=== PATIENT | male | born 1955 | race Asian ===

== ENCOUNTER 2017-10-31 04:30 | Emergency (ER) | payer SELFPAY ==
[~2017-10-31] VITALS: Ht 172.7 cm; Wt 95.5 kg
[~2017-10-31 04:30] MED LIST: ALLO100T PO; ASPI81 PO; ATEN50TA PO; LISI-662 PO
[2017-10-31] MEDS ORDERED: AMLO-511 PO (04:41)
[2017-10-31 05:13] LABS: BASOPHILS % (AUTO) 0.3 % (0.0-2.0); EOSINOPHILS % (AUTO) 2.3 % (1.0-6.0); HEMATOCRIT 47.6 % (41-53); HEMOGLOBIN 16.2 g/dL (13.5-17.5); LYMPHOCYTES # (AUTO) 1.4 K/uL (1.0-4.8); LYMPHOCYTES % (AUTO) 18.4 % (22.0-44.0); MEAN CORPUSCULAR HEMOGLOBIN 29.2 pg (26.0-34.0); MEAN CORPUSCULAR HGB CONC 34.1 G/dL (31.0-37.0); MEAN CORPUSCULAR VOLUME 86 fL (80-100); MONOCYTES # (AUTO) 0.5 K/uL (0.1-1.0); MONOCYTES % (AUTO) 6.6 % (2.0-9.0); NEUTROPHILS # (AUTO) 5.7 K/uL (1.8-7.7); NEUTROPHILS % (AUTO) 72.4 % (40.0-70.0); PLATELET COUNT (AUTO) 270 K/uL (150-450); RED BLOOD CELL COUNT(AUTO) 5.56 MIL/uL (4.50-5.90); RED CELL DISTRIBUTION WIDTH 13.4 % (11.5-14.5)
[2017-10-31 05:23] LABS: ANION GAP 9 mmol/L (8-16); CALCIUM, TOTAL 8.3 mg/dL (8.8-10.5); CARBON DIOXIDE 27 mmol/L (22-29); CHLORIDE 105 mmol/L (98-107); CREATININE 1.35 mg/dL (0.60-1.30); GLOMERULAR FILTR. RATE CALC 54 mL/min (>60); GLUCOSE,RANDOM 131 mg/dL (70-110); POTASSIUM 3.9 mmol/L (3.5-5.1); SODIUM SERUM 141 mmol/L (136-145); UREA NITROGEN, BLOOD 18 mg/dL (7-18)
[2017-10-31 05:28] LABS: ALANINE AMINOTRANSFERASE 69 U/L (12-78); ALBUMIN 3.5 g/dL (3.4-5.0); ALKALINE PHOSPHATASE 73 U/L (46-116); ASPARTATE AMINOTRANSFERASE 27 U/L (15-37); BILIRUBIN,TOTAL 0.3 mg/dL (0.1-1.0); TOTAL PROTEIN, SERUM 7.6 g/dL (6.4-8.2)
[2017-10-31] MEDS ORDERED: ONDANSETRON HCL 4 MG/2 ML VIAL IVP ONE (06:45)
[2017-10-31] MEDS ORDERED: MORPHINE SULFATE 4 MG/ML SYRINGE IVP ONE ×2 (06:45→07:45)
[2017-10-31] MEDS ORDERED: SODIUM CHLORIDE 0.9% 1,000 ML IV ONE (06:45)
[2017-10-31 07:27] LABS: AMYLASE 85 U/L (25-115); CREATINE KINASE MB 0.8 ng/mL (0-5); CREATINE KINASE, TOTAL 120 U/L (39-308); LIPASE 156 U/L (73-393)
[2017-10-31] MEDS ORDERED: LORazepam 2 MG/ML VIAL IVP ONE (07:45)
[2017-10-31] MEDS ORDERED: KETOROLAC TROMETHAMINE 30 MG/ML VIAL IVP ONE (08:00)
[2017-10-31 08:22] LABS: APPEARANCE,URINE CLEAR (CLEAR); BILIRUBIN,URINE NEGATIVE (NEGATIVE); GLUCOSE, URINE (UA) NEGATIVE (NEGATIVE); KETONES,URINE NEGATIVE (NEGATIVE); LEUKOCYTE ESTERASE ,URINE NEGATIVE (NEGATIVE); NITRATE,URINE NEGATIVE (NEGATIVE); OCCULT BLOOD,URINE MODERATE (NEGATIVE); PH,URINE 5.5 (5.0-8.0); PROTEIN,URINE TRACE (NEGATIVE); UROBILINOGEN,URINE 0.2 mg/dL (<=1.0)
[2017-10-31 08:30] LABS: WBC,URINE 0-2 /HPF (0-5)
[2017-10-31 08:31] LABS: BACTERIA,URINE Rare /HPF (None Seen)
[2017-10-31 08:35] LABS: SQUAMOUS EPITHELIAL CELL,UR None Seen /LPF (None Seen)
[2017-10-31 09:26] VITALS: BP 140/90
== END 2017-10-31 09:53 | disposition home or self-care (01) ==
LOC: EMS 04:31
DX: N20.0 Calculus of kidney (principal); I10 Essential (primary) hypertension
CPT/HCPCS: 36415; 71045; 74177; 80053; 81001; 82150; 82550; 82553; 83690; 84484; 85025; 96361; 96374; 96375; 96376; 99285; J1885; J2060; J2270; J2405; J7030

== ENCOUNTER 2021-03-22 09:02 | Inpatient (IN) | payer MEDICAID, OTHER ==
[~2021-03-22] VITALS: Ht 170.2 cm; Wt 120.1 kg
[~2021-03-22 09:02] MED LIST changes: -ALLO100T PO; +ALLO100T2 PO; +AMLO-257 PO; +ASPI-1450 PO; -ASPI81 PO; +ATEN-72 PO; -ATEN50TA PO; -LISI-662 PO; +LISI-894 PO
[2021-03-22] MEDS ORDERED: ACETAMINOPHEN 325 MG TABLET PO ONE (09:45)
[2021-03-22 10:09] LABS: COVID AG,FIA SOURCE NASOPHARYNGEAL
[2021-03-22 10:16] LABS: BASOPHILS % (AUTO) 0.3 % (0.0-2.0); EOSINOPHILS % (AUTO) 3.2 % (1.0-6.0); HEMATOCRIT 45.2 % (41-53); LYMPHOCYTES # (AUTO) 0.9 K/uL (1.0-4.8); LYMPHOCYTES % (AUTO) 15.4 % (22.0-44.0); MEAN CORPUSCULAR HEMOGLOBIN 28.7 pg (26.0-34.0); MEAN CORPUSCULAR HGB CONC 33.1 G/dL (31.0-37.0); MEAN CORPUSCULAR VOLUME 87 fL (80-100); MONOCYTES # (AUTO) 0.6 K/uL (0.1-1.0); MONOCYTES % (AUTO) 10.6 % (2.0-9.0); NEUTROPHILS # (AUTO) 3.9 K/uL (1.8-7.7); NEUTROPHILS % (AUTO) 70.5 % (40.0-70.0); PLATELET COUNT (AUTO) 239 K/uL (150-450); RED CELL DISTRIBUTION WIDTH 14.2 % (11.5-14.5)
[2021-03-22 10:41] LABS: INFLUENZA TYPE A NEGATIVE FOR TYPE A (NEGATIVE); INFLUENZA TYPE B POSITIVE FOR TYPE B (NEGATIVE)
[2021-03-22 10:50] LABS: ALANINE AMINOTRANSFERASE 56 U/L (12-78); ALBUMIN 3.3 g/dL (3.4-5.0); ALKALINE PHOSPHATASE 62 U/L (46-116); ANION GAP 10 mmol/L (8-16); ASPARTATE AMINOTRANSFERASE 25 U/L (15-37); BILIRUBIN,TOTAL 0.5 mg/dL (0.1-1.0); CALCIUM, TOTAL 8.6 mg/dL (8.8-10.5); CARBON DIOXIDE 25 mmol/L (22-29); CHLORIDE 106 mmol/L (98-107); CREATININE 0.93 mg/dL (0.60-1.30); GLOMERULAR FILTR. RATE CALC > 60 mL/min (>60); GLUCOSE,RANDOM 113 mg/dL (70-110); POTASSIUM 3.9 mmol/L (3.5-5.1); SODIUM SERUM 141 mmol/L (136-145); TOTAL PROTEIN, SERUM 7.5 g/dL (6.4-8.2); UREA NITROGEN, BLOOD 12 mg/dL (7-18)
[2021-03-22 11:13] LABS: C-REACTIVE PROTEIN QUANT 1.68 mg/dL (0.00-0.30); FERRITIN 167 ng/mL (26-388); LACTATE DEHYDROGENASE 187 U/L (85-227)
[2021-03-22] MEDS ORDERED: OSELTAMIVIR PHOSPHATE 75 MG CAPSULE PO ONE (11:45)
[2021-03-22] MEDS ORDERED: ATENOLOL 50 MG TABLET PO ONE (12:15)
[2021-03-22] MEDS ORDERED: LISINOPRIL 10 MG TABLET PO ONE (12:15)
[2021-03-22] MEDS ORDERED: ACETAMINOPHEN 325 MG TABLET PO PRN (12:30)
[2021-03-22] MEDS ORDERED: 0.9% SODIUM CHLORIDE 10 ML SYRINGE IVP PRN (12:30)
[2021-03-22] MEDS ORDERED: ONDANSETRON HCL 4 MG/2 ML VIAL IVP PRN ×2 (12:30→16:00)
[2021-03-22] MEDS ORDERED: MAG HYDROX/AL HYDROX/SIMETH 30 ML SUSP UDCUP PO ONE (15:15)
[2021-03-22] MEDS ORDERED: MAG HYDROX/AL HYDROX/SIMETH ES 30 ML SUSPENSION UDCUP PO ONE (15:15)
[2021-03-22] MEDS ORDERED: HYDROCODONE/ACETAMINOPHEN 5-325 MG TABLET PO PRN (16:00)
[2021-03-22] MEDS ORDERED: MAGNESIUM HYDROXIDE SUSPENSION 30 ML UDCUP PO PRN (16:00)
[2021-03-22] MEDS ORDERED: ZOLPIDEM TARTRATE 5 MG TABLET PO PRN (16:00)
[2021-03-22] MEDS ORDERED: MORPHINE SULFATE 2 MG/ML SYRINGE IVP PRN (16:00)
[2021-03-22] MEDS ORDERED: BISACODYL 10 MG RECTAL RECTAL SUPPOSITORY PR PRN (16:00)
[2021-03-22] MEDS: HEPARIN SODIUM,PORCINE 5,000 UNITS/ML VIAL SQ SCH (16:59)
[2021-03-22 18:34] VITALS: BP 149/79
[2021-03-22 19:57] VITALS: BP 164/99
[2021-03-22] MEDS: DOCUSATE SODIUM 100 MG CAPSULE PO SCH (20:45)
[2021-03-22] MEDS: ACETAMINOPHEN 325 MG TABLET PO PRN (20:45)
[2021-03-22] MEDS: OSELTAMIVIR PHOSPHATE 75 MG CAPSULE PO SCH (21:57)
[2021-03-22] MEDS: MAG HYDROX/AL HYDROX/SIMETH ES 30 ML SUSPENSION UDCUP PO PRN (21:57)
[2021-03-22 23:41] VITALS: BP 146/96
[2021-03-23] MEDS: HEPARIN SODIUM,PORCINE 5,000 UNITS/ML VIAL SQ SCH ×4 (00:10→23:05)
[2021-03-23 04:05] VITALS: BP 145/89
[2021-03-23 06:36] LABS: BASOPHILS % (AUTO) 0.3 % (0.0-2.0); EOSINOPHILS % (AUTO) 3.2 % (1.0-6.0); HEMOGLOBIN 14.2 g/dL (13.5-17.5); LYMPHOCYTES # (AUTO) 1.2 K/uL (1.0-4.8); LYMPHOCYTES % (AUTO) 18.9 % (22.0-44.0); MEAN CORPUSCULAR HEMOGLOBIN 28.9 pg (26.0-34.0); MEAN CORPUSCULAR VOLUME 88 fL (80-100); MONOCYTES # (AUTO) 0.7 K/uL (0.1-1.0); MONOCYTES % (AUTO) 11.4 % (2.0-9.0); NEUTROPHILS # (AUTO) 4.2 K/uL (1.8-7.7); NEUTROPHILS % (AUTO) 66.2 % (40.0-70.0); PLATELET COUNT (AUTO) 236 K/uL (150-450); RED CELL DISTRIBUTION WIDTH 14.2 % (11.5-14.5)
[2021-03-23 07:02] LABS: ANION GAP 9 mmol/L (8-16); CALCIUM, TOTAL 8.4 mg/dL (8.8-10.5); CARBON DIOXIDE 27 mmol/L (22-29); CHLORIDE 104 mmol/L (98-107); GLOMERULAR FILTR. RATE CALC > 60 mL/min (>60); GLUCOSE,RANDOM 137 mg/dL (70-110); POTASSIUM 3.9 mmol/L (3.5-5.1); SODIUM SERUM 140 mmol/L (136-145); UREA NITROGEN, BLOOD 12 mg/dL (7-18)
[2021-03-23 07:46] VITALS: BP 149/92
[2021-03-23] MEDS ORDERED: AmLODIPine BESYLATE 5 MG TABLET PO SCH (09:00)
[2021-03-23] MEDS: DOCUSATE SODIUM 100 MG CAPSULE PO SCH ×3 (09:00→20:47)
[2021-03-23] MEDS: FUROSEMIDE 20 MG/2 ML VIAL IVP SCH (10:05)
[2021-03-23] MEDS: PANTOPRAZOLE SODIUM 40 MG DR TABLET PO SCH (10:06)
[2021-03-23] MEDS: ASPIRIN 81 MG CHEWABLE TABLET PO SCH (10:06)
[2021-03-23] MEDS: OSELTAMIVIR PHOSPHATE 75 MG CAPSULE PO SCH ×2 (10:06→20:38)
[2021-03-23] MEDS: ALLOPURINOL 100 MG TABLET PO SCH (10:06)
[2021-03-23] MEDS: LISINOPRIL 20 MG TABLET PO SCH (10:07)
[2021-03-23] MEDS: ATENOLOL 50 MG TABLET PO SCH (10:23)
[2021-03-23 10:58] VITALS: BP 144/78
[2021-03-23 16:11] VITALS: BP 155/105
[2021-03-23] MEDS: MAG HYDROX/AL HYDROX/SIMETH ES 30 ML SUSPENSION UDCUP PO PRN (17:26)
[2021-03-23] MEDS ORDERED: AmLODIPine BESYLATE 5 MG TABLET PO ONE (17:45)
[2021-03-23 19:21] VITALS: BP 163/91
[2021-03-23 23:45] VITALS: BP 157/103
[2021-03-24] MEDS: ACETAMINOPHEN 325 MG TABLET PO PRN ×2 (00:16→20:16)
[2021-03-24 04:17] VITALS: BP 151/100
[2021-03-24 06:10] LABS: BASOPHILS % (AUTO) 0.5 % (0.0-2.0); EOSINOPHILS % (AUTO) 4.1 % (1.0-6.0); HEMATOCRIT 43.8 % (41-53); HEMOGLOBIN 14.4 g/dL (13.5-17.5); LYMPHOCYTES # (AUTO) 1.6 K/uL (1.0-4.8); LYMPHOCYTES % (AUTO) 27.9 % (22.0-44.0); MEAN CORPUSCULAR HEMOGLOBIN 28.8 pg (26.0-34.0); MEAN CORPUSCULAR VOLUME 87 fL (80-100); MONOCYTES # (AUTO) 0.8 K/uL (0.1-1.0); MONOCYTES % (AUTO) 13.7 % (2.0-9.0); NEUTROPHILS # (AUTO) 3.1 K/uL (1.8-7.7); NEUTROPHILS % (AUTO) 53.8 % (40.0-70.0); PLATELET COUNT (AUTO) 238 K/uL (150-450); RED BLOOD CELL COUNT(AUTO) 5.02 MIL/uL (4.50-5.90); RED CELL DISTRIBUTION WIDTH 14.2 % (11.5-14.5)
[2021-03-24 06:47] LABS: ANION GAP 11 mmol/L (8-16); CALCIUM, TOTAL 8.4 mg/dL (8.8-10.5); CARBON DIOXIDE 29 mmol/L (22-29); CHLORIDE 106 mmol/L (98-107); CREATININE 0.95 mg/dL (0.60-1.30); GLOMERULAR FILTR. RATE CALC > 60 mL/min (>60); GLUCOSE,RANDOM 106 mg/dL (70-110); SODIUM SERUM 146 mmol/L (136-145); UREA NITROGEN, BLOOD 15 mg/dL (7-18)
[2021-03-24 08:08] VITALS: BP 148/99
[2021-03-24] MEDS: LISINOPRIL 20 MG TABLET PO SCH (08:32)
[2021-03-24] MEDS: HEPARIN SODIUM,PORCINE 5,000 UNITS/ML VIAL SQ SCH ×3 (08:33→23:24)
[2021-03-24] MEDS: ALLOPURINOL 100 MG TABLET PO SCH (08:33)
[2021-03-24] MEDS: ASPIRIN 81 MG CHEWABLE TABLET PO SCH (08:33)
[2021-03-24] MEDS: ATENOLOL 50 MG TABLET PO SCH (08:33)
[2021-03-24] MEDS: AmLODIPine BESYLATE 10 MG TABLET PO SCH (08:34)
[2021-03-24] MEDS: FUROSEMIDE 20 MG/2 ML VIAL IVP SCH (08:34)
[2021-03-24] MEDS: PANTOPRAZOLE SODIUM 40 MG DR TABLET PO SCH (08:34)
[2021-03-24] MEDS: DOCUSATE SODIUM 100 MG CAPSULE PO SCH ×2 (09:00→20:16)
[2021-03-24] MEDS: OSELTAMIVIR PHOSPHATE 75 MG CAPSULE PO SCH ×3 (09:00→20:16)
[2021-03-24] MEDS ORDERED: METHYL SALICYLATE/MENTH/CAMPH TOPICAL PATCH TP PRN (11:00)
[2021-03-24 12:05] VITALS: BP 130/80
[2021-03-24 16:05] VITALS: BP 132/84
[2021-03-24 20:01] VITALS: BP 159/98
[2021-03-25] VITALS (7 sets, daily range): BP systolic 122–157; BP diastolic 63–90
[2021-03-25 07:47] LABS: BASOPHILS % (AUTO) 0.5 % (0.0-2.0); HEMATOCRIT 46.3 % (41-53); HEMOGLOBIN 15.3 g/dL (13.5-17.5); LYMPHOCYTES # (AUTO) 1.4 K/uL (1.0-4.8); LYMPHOCYTES % (AUTO) 25.2 % (22.0-44.0); MEAN CORPUSCULAR HEMOGLOBIN 29.1 pg (26.0-34.0); MEAN CORPUSCULAR HGB CONC 33.1 G/dL (31.0-37.0); MEAN CORPUSCULAR VOLUME 88 fL (80-100); MONOCYTES # (AUTO) 0.8 K/uL (0.1-1.0); MONOCYTES % (AUTO) 13.4 % (2.0-9.0); NEUTROPHILS # (AUTO) 3.1 K/uL (1.8-7.7); NEUTROPHILS % (AUTO) 54.9 % (40.0-70.0); PLATELET COUNT (AUTO) 265 K/uL (150-450); RED BLOOD CELL COUNT(AUTO) 5.27 MIL/uL (4.50-5.90); RED CELL DISTRIBUTION WIDTH 14.1 % (11.5-14.5)
[2021-03-25 08:01] LABS: ANION GAP 5 mmol/L (8-16); CALCIUM, TOTAL 8.9 mg/dL (8.8-10.5); CARBON DIOXIDE 30 mmol/L (22-29); CHLORIDE 105 mmol/L (98-107); CREATININE 0.99 mg/dL (0.60-1.30); GLOMERULAR FILTR. RATE CALC > 60 mL/min (>60); GLUCOSE,RANDOM 89 mg/dL (70-110); SODIUM SERUM 140 mmol/L (136-145); UREA NITROGEN, BLOOD 18 mg/dL (7-18)
[2021-03-25] MEDS: OSELTAMIVIR PHOSPHATE 75 MG CAPSULE PO SCH ×2 (08:40→20:23)
[2021-03-25] MEDS: HEPARIN SODIUM,PORCINE 5,000 UNITS/ML VIAL SQ SCH ×3 (08:40→23:43)
[2021-03-25] MEDS: FUROSEMIDE 20 MG/2 ML VIAL IVP SCH (08:40)
[2021-03-25] MEDS: ATENOLOL 50 MG TABLET PO SCH (08:40)
[2021-03-25] MEDS: LISINOPRIL 20 MG TABLET PO SCH (08:40)
[2021-03-25] MEDS: ALLOPURINOL 100 MG TABLET PO SCH (08:40)
[2021-03-25] MEDS: ASPIRIN 81 MG CHEWABLE TABLET PO SCH (08:40)
[2021-03-25] MEDS: PANTOPRAZOLE SODIUM 40 MG DR TABLET PO SCH (08:40)
[2021-03-25] MEDS: AmLODIPine BESYLATE 10 MG TABLET PO SCH (08:41)
[2021-03-25] MEDS: DOCUSATE SODIUM 100 MG CAPSULE PO SCH ×2 (08:50→20:23)
[2021-03-25 14:33] LABS: ABG A-A DIFF O2 188.6 mmHg (10-20.0); ABG CARBOXYHEMOGLOBIN 1.4 % (0.0-1.5); ABG HCO3 26.9 mmol/L (22.0-26.0); ABG METHEMOGLOBIN 0.3 % (0.0-1.5); ABG OXYGEN CONTENT 21.4 mL/dL (15.0-23.0); ABG OXYGEN SATURATION 95.9 % (95.0-98.0); ABG OXYHEMOGLOBIN 94.3 % (94.0-100.0); ABG PCO2 41 mmHg (35-45); ABG PH 7.441 (7.35-7.450); ABG TOTAL HEMOGLOBIN 16.1 G/dL (12.0-18.0); PO2, ARTERIAL BG 78.6 mmHg (79.0-87.0); SOURCE, BLOOD GAS ARTERIAL; TEMPERATURE, FAHRENHEIT, BG 98.6 FAHREN (96.0-98.6)
[2021-03-25 14:34] LABS: O2 DEVICE,BLOOD GAS CANNULA (ROOM AIR); SITE, BLOOD GAS LFT RADIAL
[2021-03-25 19:38] LABS: ABG A-A DIFF O2 37.5 mmHg (10-20.0); ABG BASE EXCESS 3.3 mmol/L (-2.0-3.0); ABG CARBOXYHEMOGLOBIN 0.6 % (0.0-1.5); ABG HCO3 27.1 mmol/L (22.0-26.0); ABG METHEMOGLOBIN 0.2 % (0.0-1.5); ABG OXYGEN CONTENT 20.9 mL/dL (15.0-23.0); ABG OXYGEN SATURATION 93.1 % (95.0-98.0); ABG OXYHEMOGLOBIN 92.4 % (94.0-100.0); ABG PCO2 40 mmHg (35-45); ABG PH 7.453 (7.35-7.450); ABG TOTAL HEMOGLOBIN 16.1 G/dL (12.0-18.0); PO2, ARTERIAL BG 64.6 mmHg (79.0-87.0); SOURCE, BLOOD GAS ARTERIAL; TEMPERATURE, FAHRENHEIT, BG 98.6 FAHREN (96.0-98.6)
[2021-03-25 19:39] LABS: SITE, BLOOD GAS LFT RADIAL
[2021-03-26 04:07] VITALS: BP 144/90
[2021-03-26 07:27] VITALS: BP 144/59
[2021-03-26] MEDS: ASPIRIN 81 MG CHEWABLE TABLET PO SCH (08:56)
[2021-03-26] MEDS: LISINOPRIL 20 MG TABLET PO SCH (08:56)
[2021-03-26] MEDS: PANTOPRAZOLE SODIUM 40 MG DR TABLET PO SCH (08:57)
[2021-03-26] MEDS: ALLOPURINOL 100 MG TABLET PO SCH (08:57)
[2021-03-26] MEDS: DOCUSATE SODIUM 100 MG CAPSULE PO SCH ×2 (08:57→20:02)
[2021-03-26] MEDS: FUROSEMIDE 20 MG/2 ML VIAL IVP SCH (08:57)
[2021-03-26] MEDS: AmLODIPine BESYLATE 10 MG TABLET PO SCH (08:57)
[2021-03-26] MEDS: ATENOLOL 50 MG TABLET PO SCH (08:57)
[2021-03-26] MEDS: OSELTAMIVIR PHOSPHATE 75 MG CAPSULE PO SCH ×2 (08:57→20:02)
[2021-03-26] MEDS: HEPARIN SODIUM,PORCINE 5,000 UNITS/ML VIAL SQ SCH ×3 (08:59→23:58)
[2021-03-26 11:50] VITALS: BP 151/83
[2021-03-26 16:53] VITALS: BP 109/63
[2021-03-26] MEDS: RANOLAZINE 500 MG ER TABLET PO SCH (20:02)
[2021-03-26 20:28] VITALS: BP 132/92
[2021-03-27] VITALS (7 sets, daily range): BP systolic 126–153; BP diastolic 59–103
[2021-03-27 06:52] LABS: BASOPHILS % (AUTO) 0.5 % (0.0-2.0); HEMATOCRIT 48.1 % (41-53); HEMOGLOBIN 15.8 g/dL (13.5-17.5); LYMPHOCYTES # (AUTO) 1.8 K/uL (1.0-4.8); LYMPHOCYTES % (AUTO) 27.7 % (22.0-44.0); MEAN CORPUSCULAR HEMOGLOBIN 28.9 pg (26.0-34.0); MEAN CORPUSCULAR HGB CONC 32.8 G/dL (31.0-37.0); MEAN CORPUSCULAR VOLUME 88 fL (80-100); MONOCYTES # (AUTO) 0.7 K/uL (0.1-1.0); MONOCYTES % (AUTO) 11.4 % (2.0-9.0); NEUTROPHILS # (AUTO) 3.6 K/uL (1.8-7.7); NEUTROPHILS % (AUTO) 56.4 % (40.0-70.0); PLATELET COUNT (AUTO) 305 K/uL (150-450); RED BLOOD CELL COUNT(AUTO) 5.46 MIL/uL (4.50-5.90); RED CELL DISTRIBUTION WIDTH 14.1 % (11.5-14.5)
[2021-03-27 07:04] LABS: ANION GAP 8 mmol/L (8-16); CALCIUM, TOTAL 9.1 mg/dL (8.8-10.5); CARBON DIOXIDE 31 mmol/L (22-29); CHLORIDE 101 mmol/L (98-107); CREATININE 1.16 mg/dL (0.60-1.30); GLOMERULAR FILTR. RATE CALC > 60 mL/min (>60); GLUCOSE,RANDOM 113 mg/dL (70-110); POTASSIUM 4.1 mmol/L (3.5-5.1); SODIUM SERUM 140 mmol/L (136-145); UREA NITROGEN, BLOOD 19 mg/dL (7-18)
[2021-03-27] MEDS: ATENOLOL 50 MG TABLET PO SCH (08:12)
[2021-03-27] MEDS: ASPIRIN 81 MG CHEWABLE TABLET PO SCH (08:12)
[2021-03-27] MEDS: RANOLAZINE 500 MG ER TABLET PO SCH ×2 (08:12→21:00)
[2021-03-27] MEDS: OSELTAMIVIR PHOSPHATE 75 MG CAPSULE PO SCH (08:12)
[2021-03-27] MEDS: ALLOPURINOL 100 MG TABLET PO SCH (08:12)
[2021-03-27] MEDS: LISINOPRIL 20 MG TABLET PO SCH (08:13)
[2021-03-27] MEDS: HEPARIN SODIUM,PORCINE 5,000 UNITS/ML VIAL SQ SCH ×2 (08:13→16:43)
[2021-03-27] MEDS: FUROSEMIDE 20 MG/2 ML VIAL IVP SCH (08:13)
[2021-03-27] MEDS: AmLODIPine BESYLATE 10 MG TABLET PO SCH (08:13)
[2021-03-27] MEDS: PANTOPRAZOLE SODIUM 40 MG DR TABLET PO SCH (08:13)
[2021-03-27] MEDS: DOCUSATE SODIUM 100 MG CAPSULE PO SCH ×3 (08:13→21:07)
[2021-03-28] MEDS: HEPARIN SODIUM,PORCINE 5,000 UNITS/ML VIAL SQ SCH ×4 (00:57→23:53)
[2021-03-28 04:11] VITALS: BP 149/98
[2021-03-28 06:44] LABS: BASOPHILS % (AUTO) 0.6 % (0.0-2.0); EOSINOPHILS % (AUTO) 5.3 % (1.0-6.0); HEMATOCRIT 47.4 % (41-53); HEMOGLOBIN 15.5 g/dL (13.5-17.5); LYMPHOCYTES # (AUTO) 1.3 K/uL (1.0-4.8); LYMPHOCYTES % (AUTO) 22.7 % (22.0-44.0); MEAN CORPUSCULAR HEMOGLOBIN 28.9 pg (26.0-34.0); MEAN CORPUSCULAR HGB CONC 32.7 G/dL (31.0-37.0); MEAN CORPUSCULAR VOLUME 88 fL (80-100); MONOCYTES # (AUTO) 0.9 K/uL (0.1-1.0); MONOCYTES % (AUTO) 15.3 % (2.0-9.0); NEUTROPHILS # (AUTO) 3.2 K/uL (1.8-7.7); NEUTROPHILS % (AUTO) 56.1 % (40.0-70.0); PLATELET COUNT (AUTO) 281 K/uL (150-450); RED BLOOD CELL COUNT(AUTO) 5.37 MIL/uL (4.50-5.90); RED CELL DISTRIBUTION WIDTH 13.9 % (11.5-14.5)
[2021-03-28 07:12] LABS: ALANINE AMINOTRANSFERASE 93 U/L (12-78); ALBUMIN 2.9 g/dL (3.4-5.0); ALKALINE PHOSPHATASE 54 U/L (46-116); ANION GAP 5 mmol/L (8-16); ASPARTATE AMINOTRANSFERASE 51 U/L (15-37); BILIRUBIN,TOTAL 0.5 mg/dL (0.1-1.0); CALCIUM, TOTAL 8.9 mg/dL (8.8-10.5); CARBON DIOXIDE 29 mmol/L (22-29); CHLORIDE 103 mmol/L (98-107); CREATININE 1.01 mg/dL (0.60-1.30); GLOMERULAR FILTR. RATE CALC > 60 mL/min (>60); GLUCOSE,RANDOM 100 mg/dL (70-110); POTASSIUM 4.1 mmol/L (3.5-5.1); SODIUM SERUM 137 mmol/L (136-145); TOTAL PROTEIN, SERUM 7.5 g/dL (6.4-8.2); UREA NITROGEN, BLOOD 18 mg/dL (7-18)
[2021-03-28] MEDS: DOCUSATE SODIUM 100 MG CAPSULE PO SCH ×2 (09:00→20:30)
[2021-03-28] MEDS: ASPIRIN 81 MG CHEWABLE TABLET PO SCH (09:33)
[2021-03-28] MEDS: FUROSEMIDE 20 MG/2 ML VIAL IVP SCH (09:33)
[2021-03-28] MEDS: PANTOPRAZOLE SODIUM 40 MG DR TABLET PO SCH (09:34)
[2021-03-28] MEDS: AmLODIPine BESYLATE 10 MG TABLET PO SCH (09:34)
[2021-03-28] MEDS: LISINOPRIL 20 MG TABLET PO SCH (09:34)
[2021-03-28 09:51] VITALS: BP 133/70
[2021-03-28] MEDS: ATENOLOL 50 MG TABLET PO SCH (10:12)
[2021-03-28] MEDS: RANOLAZINE 500 MG ER TABLET PO SCH ×2 (10:12→20:31)
[2021-03-28 11:47] VITALS: BP 128/87
[2021-03-28] MEDS: ALLOPURINOL 100 MG TABLET PO SCH (12:10)
[2021-03-28 15:44] VITALS: BP 133/93
[2021-03-28 19:36] VITALS: BP 144/81
[2021-03-28 23:36] VITALS: BP 160/83
[2021-03-29] VITALS (7 sets, daily range): BP systolic 134–179; BP diastolic 72–104
[2021-03-29 06:48] LABS: BASOPHILS % (AUTO) 0.7 % (0.0-2.0); EOSINOPHILS % (AUTO) 3.2 % (1.0-6.0); HEMOGLOBIN 16.2 g/dL (13.5-17.5); LYMPHOCYTES # (AUTO) 1.4 K/uL (1.0-4.8); LYMPHOCYTES % (AUTO) 24.1 % (22.0-44.0); MEAN CORPUSCULAR HEMOGLOBIN 29.2 pg (26.0-34.0); MEAN CORPUSCULAR VOLUME 88 fL (80-100); MONOCYTES # (AUTO) 0.5 K/uL (0.1-1.0); MONOCYTES % (AUTO) 8.9 % (2.0-9.0); NEUTROPHILS # (AUTO) 3.7 K/uL (1.8-7.7); NEUTROPHILS % (AUTO) 63.1 % (40.0-70.0); PLATELET COUNT (AUTO) 289 K/uL (150-450); RED BLOOD CELL COUNT(AUTO) 5.54 MIL/uL (4.50-5.90); RED CELL DISTRIBUTION WIDTH 14.2 % (11.5-14.5)
[2021-03-29 06:56] LABS: ANION GAP 9 mmol/L (8-16); CALCIUM, TOTAL 8.8 mg/dL (8.8-10.5); CARBON DIOXIDE 32 mmol/L (22-29); CHLORIDE 100 mmol/L (98-107); CREATININE 1.15 mg/dL (0.60-1.30); GLOMERULAR FILTR. RATE CALC > 60 mL/min (>60); GLUCOSE,RANDOM 157 mg/dL (70-110); POTASSIUM 4.2 mmol/L (3.5-5.1); SODIUM SERUM 141 mmol/L (136-145)
[2021-03-29 07:00] LABS: UREA NITROGEN, BLOOD 18 mg/dL (7-18)
[2021-03-29] MEDS: PANTOPRAZOLE SODIUM 40 MG DR TABLET PO SCH (08:14)
[2021-03-29] MEDS: RANOLAZINE 500 MG ER TABLET PO SCH ×2 (08:14→21:41)
[2021-03-29] MEDS: ASPIRIN 81 MG CHEWABLE TABLET PO SCH (08:15)
[2021-03-29] MEDS: ATENOLOL 50 MG TABLET PO SCH (08:15)
[2021-03-29] MEDS: ALLOPURINOL 100 MG TABLET PO SCH (08:15)
[2021-03-29] MEDS: AmLODIPine BESYLATE 10 MG TABLET PO SCH (08:15)
[2021-03-29] MEDS: LISINOPRIL 20 MG TABLET PO SCH (08:16)
[2021-03-29] MEDS: HEPARIN SODIUM,PORCINE 5,000 UNITS/ML VIAL SQ SCH ×2 (08:16→15:26)
[2021-03-29] MEDS: FUROSEMIDE 20 MG/2 ML VIAL IVP SCH (08:16)
[2021-03-29] MEDS: DOCUSATE SODIUM 100 MG CAPSULE PO SCH ×2 (08:19→21:00)
[2021-03-29] MEDS: HydrALAZINE HCL 50 MG TABLET PO SCH ×2 (14:50→21:41)
[2021-03-30] MEDS: HEPARIN SODIUM,PORCINE 5,000 UNITS/ML VIAL SQ SCH ×2 (00:02→09:45)
[2021-03-30 04:41] VITALS: BP 124/84
[2021-03-30 06:32] LABS: BASOPHILS % (AUTO) 0.6 % (0.0-2.0); EOSINOPHILS % (AUTO) 3.5 % (1.0-6.0); HEMATOCRIT 47.9 % (41-53); HEMOGLOBIN 15.5 g/dL (13.5-17.5); LYMPHOCYTES # (AUTO) 1.4 K/uL (1.0-4.8); LYMPHOCYTES % (AUTO) 28.5 % (22.0-44.0); MEAN CORPUSCULAR HEMOGLOBIN 28.7 pg (26.0-34.0); MEAN CORPUSCULAR HGB CONC 32.4 G/dL (31.0-37.0); MEAN CORPUSCULAR VOLUME 89 fL (80-100); MONOCYTES # (AUTO) 0.6 K/uL (0.1-1.0); MONOCYTES % (AUTO) 12.7 % (2.0-9.0); NEUTROPHILS # (AUTO) 2.7 K/uL (1.8-7.7); NEUTROPHILS % (AUTO) 54.7 % (40.0-70.0); PLATELET COUNT (AUTO) 300 K/uL (150-450); RED BLOOD CELL COUNT(AUTO) 5.41 MIL/uL (4.50-5.90)
[2021-03-30 06:40] LABS: CALCIUM, TOTAL 9.3 mg/dL (8.8-10.5); CREATININE 1.24 mg/dL (0.60-1.30); POTASSIUM 4.8 mmol/L (3.5-5.1)
[2021-03-30 07:50] VITALS: BP 126/88
[2021-03-30] MEDS: DOCUSATE SODIUM 100 MG CAPSULE PO SCH ×2 (09:00→09:43)
[2021-03-30] MEDS: AmLODIPine BESYLATE 10 MG TABLET PO SCH (09:43)
[2021-03-30] MEDS: ALLOPURINOL 100 MG TABLET PO SCH (09:43)
[2021-03-30] MEDS: RANOLAZINE 500 MG ER TABLET PO SCH (09:43)
[2021-03-30] MEDS: LISINOPRIL 20 MG TABLET PO SCH (09:43)
[2021-03-30] MEDS: FUROSEMIDE 20 MG/2 ML VIAL IVP SCH (09:44)
[2021-03-30] MEDS: ASPIRIN 81 MG CHEWABLE TABLET PO SCH (09:44)
[2021-03-30] MEDS: PANTOPRAZOLE SODIUM 40 MG DR TABLET PO SCH (09:44)
[2021-03-30] MEDS: HydrALAZINE HCL 50 MG TABLET PO SCH (09:44)
[2021-03-30] MEDS: ATENOLOL 50 MG TABLET PO SCH (09:47)
[2021-03-30 12:55] VITALS: BP 134/76
[2021-03-30] MEDS ORDERED: AMLO-258 PO (14:55)
[2021-03-30] MEDS ORDERED: RANO500T3 PO (14:55)
[2021-03-30] MEDS ORDERED: FURO-152 PO (14:55)
[2021-03-30] MEDS ORDERED: HYDR-4174 PO (14:55)
== END 2021-03-30 15:30 | disposition home or self-care (01) | DRG 139 ==
LOC: EMS 09:13 → 5N 16:15 → 5S 03-27 19:00
PROVIDERS: ADMIT Internal Medicine; ATTEND Internal Medicine
DX: J10.00 Influenza due to other identified influenza virus with unspecified type of pneumonia (principal); R65.11 Systemic inflammatory response syndrome (SIRS) of non-infectious origin with acute organ dysfunction; I50.31 Acute diastolic (congestive) heart failure; I48.20 Chronic atrial fibrillation, unspecified; E78.5 Hyperlipidemia, unspecified; E66.01 Morbid (severe) obesity due to excess calories; I11.0 Hypertensive heart disease with heart failure; M10.9 Gout, unspecified; M19.90 Unspecified osteoarthritis, unspecified site; Z20.822 Contact with and (suspected) exposure to COVID-19; Z68.41 Body mass index [BMI] 40.0-44.9, adult
CPT/HCPCS: 70450; 71045; 80048; 80053; 82728; 82805; 83605; 83615; 83880; 84145; 84484; 85025; 85379; 86140; 87040; 87804; 93005; 93306; 93880; 99285; J1644; J1940; J2405; Q9967; 36415-L1; 36415-TC; U0003